=== PATIENT | female | born 1980 | race Caucasian/White ===

== ENCOUNTER 2021-04-14 12:54 | Emergency (ER) | payer OTHER ==
[~2021-04-14 12:54] MED LIST: NORCO 5-325 TA1 EACH PO
[2021-04-14 16:26] LABS: HEMOGLOBIN 12.7 gm/dl (12.3-15.3); RED BLOOD COUNT 4.26 M/UL (4.00-5.10); WHITE BLOOD COUNT 8.1 K/UL (4.5-11.0)
[2021-04-14 16:45] LABS: BUN/CREATININE RATIO 18 (0-10)
[2021-04-14] MEDS ORDERED: ZOFRAN ODT 4 MG4 MG PO (18:53)
[2021-04-14] MEDS ORDERED: OMNICEF 300 MG300 MG PO (18:53)
== END 2021-04-14 20:50 | disposition home or self-care (01) ==
LOC: ER1 12:54
PROVIDERS: Emergency Medicine
DX: N39.0 Urinary tract infection, site not specified (principal)
CPT/HCPCS: 71045; 80053; 81001; 83880; 84439; 84443; 85025; 85379; 96374; 99283; J0696